=== PATIENT | female | born 1985 | race Caucasian/White ===

== ENCOUNTER 2017-08-14 15:05 | Emergency (ER) | payer MEDICAID | END 2017-08-14 19:28 | disposition home or self-care (01) | LOC: FTE 15:05 | DX: M54.2 Cervicalgia (principal); M79.605 Pain in left leg; M54.5 Low back pain | CPT/HCPCS: 72100; 99283-25 ==

== ENCOUNTER 2018-11-12 13:55 | Emergency (ER) | payer MEDICAID | END 2018-11-12 15:35 | disposition home or self-care (01) | LOC: FTE 13:55 | DX: M79.644 Pain in right finger(s) (principal) | CPT/HCPCS: 99283; Z7502 ==

== ENCOUNTER 2019-03-18 13:32 | Emergency (ER) | payer MEDICAID ==
[2019-03-18 16:20] LABS: ADD UMIC YES; UR ASCORBIC ACID NEGATIVE (NEGATIVE); UR BACTERIA FEW /HPF (NONE SEEN); UR BILIRUBIN (Dip) NEGATIVE (NEGATIVE); UR BLOOD (Dip) 1+ mg/dL (NEGATIVE); UR CLARITY CLEAR (CLEAR); UR COLOR STRAW (YELLOW); UR GLUCOSE (Dip) NEGATIVE (NEGATIVE); UR KETONES (Dip) NEGATIVE (NEGATIVE); UR LEUKOCYTE ESTERASE (Dip) 2+ Leu/ul (NEGATIVE); UR NITRITE (Dip) NEGATIVE (NEGATIVE); UR RBC 4 /HPF (0-5); UR SQUAMOUS EPITHELIAL CELL MODERATE /HPF (FEW); UR TOTAL PROTEIN (Dip) NEGATIVE (NEGATIVE); UR UROBILINOGEN (Dip) NEGATIVE (NEGATIVE); UR WBC 35 /HPF (0-5)
== END 2019-03-18 16:49 | disposition home or self-care (01) ==
LOC: FTE 13:32 → E/R 16:49
DX: O26.891 Other specified pregnancy related conditions, first trimester (principal); R30.0 Dysuria; Z3A.01 Less than 8 weeks gestation of pregnancy
CPT/HCPCS: 81001; 84703; 99283